=== PATIENT | male | born 1985 | race Caucasian/White ===

== ENCOUNTER 2024-01-19 03:12 | Emergency (ER) | payer SELFPAY ==
[~2024-01-19] VITALS: Ht 162.6 cm; Wt 64.0 kg
[2024-01-19 03:17] VITALS: BP 130/80; PULSE 70; RESP 16; TEMP 98.4; O2SAT 99
[2024-01-19] MEDS: INSULIN REGULAR (HUMULIN R) 1000UNITS/10ML VIAL SUBCUT ONE (03:38)
[2024-01-19 03:50] LABS: CHLORIDE 104 mEq/L (98-107); POTASSIUM 4.1 mEq/L (3.5-5.1); SODIUM 135 mEq/L (136-145)
[2024-01-19 03:51] LABS: CALCIUM 9.1 mg/dL (8.7-10.4); CARBON DIOXIDE 20 mEq/L (21-32)
[2024-01-19 03:56] LABS: CREATININE 0.8 mg/dL (0.6-1.3); UREA NITROGEN BLOOD 7 mg/dL (9-23)
[2024-01-19 04:15] LABS: GLUCOSE 452 mg/dL (70-105)
== END 2024-01-19 04:52 ==
LOC: ER 03:12
DX: E11.65 Type 2 diabetes mellitus with hyperglycemia (principal); Z00.00 Encounter for general adult medical examination without abnormal findings
CPT/HCPCS: 99283; 80048; 82962; 36415; 96372; J1815